=== PATIENT | male | born 1960 | race Caucasian/White ===

== ENCOUNTER 2024-06-07 16:35 | Emergency (ER) | payer OTHER, SELFPAY ==
[2024-06-07 16:41] VITALS: BP 155/94; PULSE 92; RESP 16; TEMP 35.6; O2SAT 97
--- NOTE | 2024-06-07 16:48 | ED_ITS ---
HPI - General Adult General Time Seen by Provider: 16:48 <Svetlana Ware MD - Last Filed: 06/08/24 09:02> Date Seen: 06/07/24 <Svtelana Ware MD - Last Filed: 06/08/24 09:02> Chief complaint: Head Injury/Pain <Svetlana Ware MD - Last Filed: 06/08/24 09:02> Stated complaint: head/hip injury <Svetlana Ware MD - Last Filed: 06/08/24 09:02> Time Seen by Provider: 06/07/24 16:38 <Svetlana Ware MD - Last Filed: 06/08/24 09:02> Source: patient and RN notes reviewed <Svetlana Ware MD - Last Filed: 0 06/08/24 09:02> Mode of arrival: ambulatory <Svetlana Ware MD - Last Filed: 06/08/24 09:02> Limitations: no limitations <Svetlana Ware MD - Last Filed: 06/08/24 09:02> History of Present Illness HPI narrative: This 64yo male is presenting to the ER with concern of left chest wall pain and left hip pain after a pallet of cereal fell on his head causing him to fall on left side. He really doesn't have any headache, left side of head felt sore from fall of box on his head but has no residual pain. No neck or back pain. No difficulty breathing but if he does cough or with movement, does have anterolateral chest wall pain. No LOC. Feels left groin and hip pain when trying to walk. No numbness or tingling. No blood thinners. This happened at work at [employer] around 3pm. Has not taken anything for pain and would appreciate either Tylenol or ibuprofen. Will order Tylenol for him. <Svetlana Crowder MD - Last Filed: 06/08/24 09:02> Related Data Home medications: Home Medications ?Medication ?Instructions ?Recorded ?Confirmed meloxicam .ROUTE 06/07/24 <Svetlana Ware MD - Last Filed: 06/08/24 09:02> Allergies/adverse reactions: Allergies Allergy/AdvReac Type Severity Reaction Status Date / Time No Known Drug Allergies Allergy Verified 06/07/24 16:44 <Svetlana Ware MD - Last Filed: 06/08/24 09:02> Review of Systems Status of ROS: Reports: 6 or more systems reviewed and unremarkable except as noted in History and below <Svetlana Ware MD - Last Filed: 06/08/24 09:02> PFSH [facility] Social History: Social History Smoking Status: Never smoker Do you use any of these nicotine containing products: None How often do you have a drink containing alcohol: never How often do you have six or more drinks on one occasion: Never AUDIT-C Alcohol total score: 0 Non-prescribed substance use: denies use <Svetlana Ware MD - Last Filed: 06/08/24 09:02> Exam Const: Vital Signs, click to edit/add: Vital Signs - 24 hr 06/07/24 16:41 06/07/24 19:00 06/07/24 20:45 Temperature 96.1 F L 98.5 F Pulse Rate [Pulse Oximeter] 92 85 Respiratory Rate 16 20 Blood Pressure [Ri ght Upper Arm] 155/94 H 150/88 H Pulse Oximetry 97 97 Oxygen Delivery Me thod Room Air This 64-year-old male is alert, interactive, no apparent distress. He ambulated into the ED of his own accord. Pupils equal round reactive, sclera clear, face atraumatic. There is no visual traumatic currency exchange specialist his scalp, left side of his head, no palpable painful area. No midline tenderness of his neck or rest of his spine. Lungs are clear, good air entry, no wheezing or crackles, no tachypnea, no accessory muscle use. CV regular rate and rhythm, no murmur, normal S1-S2, no S3-S4. Along his left anterolateral chest wall, states there is some soreness but there is no step-off, no crepitus. His abdomen is soft, nontender, nondistended, no organomegaly. He is sitting up on the edge of the bed, no leg length discrepancy, normal sensation distally. He is not feeling pain over the greater trochanter area, is feeling more pain in the groin, does have some pain with range of motion of his hip. He was still able to ambulate in. There is no noted traumatic currency exchange specialist his chest wall or over the outer hip area on the left side. <Svetlana Ware MD - Last Filed: 06/08/24 09:02> Vital Signs, click to edit/add: Vital Signs - 24 hr 06/07/24 16:41 06/07/24 19:00 06/07/24 20:45 Temperature 96.1 F L 98.5 F Pulse Rate [Pulse Oximeter] 92 85 Respiratory Rate 16 20 Blood Pressure [Ri ght Upper Arm] 155/94 H 150/88 H Pulse Oximetry 97 97 Oxygen Delivery Me thod Room Air <Herrera Greenberg MD - Last Filed: 06/07/24 20:22> Documenting provider has reviewed patient's vital signs: yes <Svetlana Ware MD - Last Filed: 06/08/24 09:02> Course Course ED Course: Will be obtaining head CT given the mechanism. Want to ensure no traumatic change. Will also look at chest x-ray with left rib views, left hip with pelvis to rule out fractures. Doubt that he has any pneumothorax or hemothorax given his stability and presentation at this time. Will order 1000 mg oral acetaminophen. <Svetlana Ware MD - Last Filed: 06/08/24 09:02> Reevaluation(s) Reevaluation #1: Patient signed out to Dr. Greenberg at shift change-[address] is already normal. We are awaiting the formal reads for his left rib and pelvis/left hip x-rays. I reviewed both sets of binge eating. He does have significant arthritis of his right hip but is not having pain there. His prosthetic left hip looks good. No evidence for any periprosthetic fracture or hip joint dislocation. I do not see any obvious pelvic fracture. Formal radiology results came back: XR Pelvis and L hip: Findings/Impression: Bones: Alignment is normal. No displaced fractures or bone lesions. Joint spaces: Left hip arthroplasty without hardware complication. Associated heterotopic bone formation of the proximal femur. End-stage right hip arthrosis. Soft tissues: Unremarkable. XR left ribs IMPRESSION: Probable acute nondisplaced left anterior 10th rib fracture. I rechecked the patient. He is endorsing some mild left chest pain, but does not have any point tenderness or bruising. Lung sounds are clear and equal. He is able to breathe deeply in easily. No diminished lung sounds to suggest a hemothorax, pneumothorax. Discussed the rib fracture with the patient. In terms of his rib fracture, The patient has good breath sounds in all rae and no hypoxia or tachycardia. There is no large hematoma or contusion or chest wall crepitus or flail segment.. No deformity. Chest x-ray shows isolated left anterior 10th up rib fracture, pneumothorax, hemothorax, or pulmonary contusion. With reasonable clinical certainty, I believe the patient is safe for discharge and can be safely managed as an outpatient. The patient was given return precautions and follow up instructions, they state understanding of these and ability to comply. Pain control as above. The patient is having more significant pain in his left hip and left groin. I had the patient do an ambulation trial. He is able to bear weight but needs to use a walker. He is able to step down his left leg but has a lot of left groin pain when he tries to lift his left leg up. He is not having any weakness or paralysis. Physical exam: Constitutional: Appears well-developed and well-nourished. Alert. Conversant. Non toxic. HENT: Head: Atraumatic. Nose: Nose normal. Mouth/Throat: Oral mucosa is clear and moist. no trismus. Eyes: Conjunctivae normal. EOM normal. Pupils equal, round, and reactive to light. No scleral icterus. Neck: Normal range of motion. Neck supple. No tracheal deviation present. No posterior midline cervical spine tenderness Cardiovascular: Normal rate, regular rhythm. No gallop. No friction rub. No murmur heard. Symmetric radial artery pulses Pulmonary/Chest: Effort normal. No stridor. No respiratory distress. No wheezes. No rales. No rhonchi . Mild left lateral rib cage tenderness but no crepitus. No point tenderness. No bruising. Abdominal: Soft. Bowel sounds normal. No distension. No mass. No tenderness. No rebound. No guarding. No CVA tenderness Musculoskeletal: No T or L-spine tenderness RUE: Normal range of motion. No tenderness. No deformity LUE: Normal range of motion. No tenderness. No deformity Pelvis is stable per RLE: Normal range of motion. No edema. No tenderness. No deformity LLE: Patient endorses pain in the left anterolateral hip and left groin. No bony crepitus. Range of motion is limited by pain. Femoral shaft, quad, hamstring are normal. Knee normal. Lower lowe leg, ankle, foot are normal. Neurological: Alert and oriented to person, place, and time. Normal strength. CN II-VII intact. No sensory deficit. GCS eye subscore is 4. GCS verbal subscore is 5. GCS motor subscore is 6. Normal coordination Skin: Skin is warm and dry. No rash noted. No pallor. Normal capillary refill. Psychiatric: Normal mood. Normal affect. Given difficulty with ambulation, although he is able to bear weight, will obtain pelvic CT IMPRESSION: 1. No evident acute displaced fracture. 2. Status post left hip arthroplasty without evidence of hardware complication. 3. There is heterotopic ossification adjacent to the left greater tuberosity of the femur. 4. Severe arthropathy of the right hip with flattening/collapse of the femoral head. Recheck: Pelvic CT is back and negative for acute fractures but does show pretty advanced arthritis in the patient's right (nonpainful tonight) hip. Discussed the findings with the patient. He verbalizes understanding. He says he is feeling better and wants to try to discharge home. 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 He says that if he calls, someone from [employer] will come pick him up from the ER in take him back to his truck. He plans to see sleep in the sleeper cab in of his truck tonight. He has food, heat, and everything he needs take care of himself there. I discussed them concern about his walking since he is still very samantha. I am concerned that he may have a lot of difficulty trying to climb up a ladder to get into the cab of his truck. We discussed possible hospitalization. He politely but definitively declines. Therefore will try a course of attempted outpatient management. We discussed managing his hip pain with [id number] medications including Tylenol or NSAIDs. He has a leave available in his truck. He will use that as needed. I am concerned that he probably will not have adequate pain relief from tlah-hap-oxoorvo pain medications. Will also give him a prescription for oxycodone (Instymeds, 10 tablets). Discussed opiate precautions including sedation, drowsiness, not driving for 6 hours after taking pain meds, as well as risk of constipation, addiction. For follow-up he says he plans to follow-up with his primary care provider [facility] [place] He actually has an appointment scheduled in 1 week with them. He does not want follow-up with the orthopedic team here in [place], since he does not live here in [place]. We discussed that if he runs into situation with uncontrolled pain or difficulty immobilization he should call 911 and return to the ER. Provided with digital copies of his x-rays and CT imaging for follow-up in [place]. <Herrera Greenberg MD - Last Filed: 06/07/24 20:22> Vital Signs Vital signs: Initial Vital Signs Temperature 96.1 F L 06/07/24 16:41 Temperature Source Temporal Artery Scan 06/07/24 16:41 Pulse Rate 92 06/07/24 16:41 Respiratory Rate 16 06/07/24 16:41 Blood Pressure 155/94 H 06/07/24 16:41 Blood Pressure Mean 114 H 06/07/24 16:41 Blood Pressure Position Sitting 06/07/24 16:41 Pulse Oximetry 97 06/07/24 16:41 Oxygen Delivery Method Room Air 06/07/24 16:41 Vital Signs Temperature 96.1 F L 06/07/24 16:41 Pulse Rate 92 06/07/24 16:41 Respiratory Rate 16 06/07/24 16:41 Blood Pressure 155/94 H 06/07/24 16:41 Pulse Oximetry 97 06/07/24 16:41 Oxygen Delivery Method Room Air 06/07/24 16:41 Temperature 98.5 F 06/07/24 20:45 Pulse Rate 85 06/07/24 20:45 Respiratory Rate 20 06/07/24 20:45 Blood Pressure 150/88 H 06/07/24 20:45 Pulse Oximetry 97 06/07/24 19:00 Oxygen Delivery Method Room Air 06/07/24 16:41 <Svetlana Ware MD - Last Filed: 06/08/24 09:02> Initial Vital Signs Temperature 96.1 F L 06/07/24 16:41 Temperature Source Temporal Artery Scan 06/07/24 16:41 Pulse Rate 92 06/07/24 16:41 Respiratory Rate 16 06/07/24 16:41 Blood Pressure 155/94 H 06/07/24 16:41 Blood Pressure Mean 114 H 06/07/24 16:41 Blood Pressure Position Sitting 06/07/24 16:41 Pulse Oximetry 97 06/07/24 16:41 Oxygen Delivery Method Room Air 06/07/24 16:41 Vital Signs Temperature 96.1 F L 06/07/24 16:41 Pulse Rate 92 06/07/24 16:41 Respiratory Rate 16 06/07/24 16:41 Blood Pressure 155/94 H 06/07/24 16:41 Pulse Oximetry 97 06/07/24 16:41 Oxygen Delivery Method Room Air 06/07/24 16:41 Temperature 98.5 F 06/07/24 20:45 Pulse Rate 85 06/07/24 20:45 Respiratory Rate 20 06/07/24 20:45 Blood Pressure 150/88 H 06/07/24 20:45 Pulse Oximetry 97 06/07/24 19:00 Oxygen Delivery Method Room Air 06/07/24 16:41 <Herrera Greenberg MD - Last Filed: 06/07/24 20:22> Medications Administered Medications: Discontinued Medications Generic Name Dose Route Start Last Admin Trade Name Freq PRN Reason Stop Dose Admin Hydrocodone Bitart/Acetaminophen 2 tab 06/07/24 18:59 06/07/24 19:14 Hydrocodone-Acetamin 5-325 Mg 1 Tab PO 06/07/24 19:00 2 tab ONCE ONE Administration <Svetlana Ware MD - Last Filed: 06/08/24 09:02> Discontinued Medications Generic Name Dose Route Start Last Admin Trade Name Freq PRN Reason Stop Dose Admin Hydrocodone Bitart/Acetaminophen 2 tab 06/07/24 18:59 06/07/24 19:14 Hydrocodone-Acetamin 5-325 Mg 1 Tab PO 06/07/24 19:00 2 tab ONCE ONE Administration <Herrera Greenberg MD - Last Filed: 06/07/24 20:22> Medical Decision Making Imaging Data CT scan - head: Attestation: I have reviewed the pertinent imaging results. <Svetlana Crowder MD - Last Filed: 06/08/24 09:02> Radiologist's impression: Patient: CASEY LEE Facility:?[facility] Patient ID:?[id number] Site Patient ID:?[id number]. Site :?[id number] Study:?CT-Head WO-06/07/2024 5:13:57 PM Ordering Physician:Jake Mota Final Report: INDICATION: Injury. TECHNIQUE: Noncontrast CT images of the brain. COMPARISON: None. FINDINGS: Mild diffuse cerebral volume loss. No mass effect or midline shift. Hodgson-white differentiation is maintained. No acute intracranial hemorrhage or pathologic extra-axial fluid collection. Intracranial atherosclerotic calcifications. Calvarium is intact. The globes are symmetric. Mild right maxillary sinus mucosal thickening. Mastoid air cells are clear. IMPRESSION: No acute intracranial hemorrhage or mass effect. Please note that all CT scans at this facility use dose modulation, iterative reconstruction, and/or weight-based dosing when appropriate to reduce radiation dose to as low as reasonably achievable. Dictated by Dong Lilly MD @ 06/07/2024 5:36:23 PM (Electronic Signature) <Svetlana Ware MD - Last Filed: 06/08/24 09:02> Discharge Plan Discharge Clinical Impression: Fall, Acute pain of left hip, Rib fracture <Svetlana Ware MD - Last Filed: 06/08/24 09:02> Patient Disposition: Home, Self-Care <Svetlana Ware MD - Last Filed: 06/08/24 09:02> Condition: Stable <Svetlana Ware MD - Last Filed: 06/08/24 09:02> Instructions: Chest Wall Pain (ED), Hip Pain (ED) <Svetlana Ware MD - Last Filed: 06/08/24 09:02> Additional Instructions: As we discussed, I am concerned about your amount of hip pain. I more that you will have a lot of trouble getting into her truck. You want to try to manage this at home, therefore, we will try a course of attempted outpatient management. If you have worsening pain, if you are unable to get into her truck, or if you have any problems, please return to the ER or call 911 right away. We do not see any signs of any broken bones in your left hip or pelvis. To manage this pain try the following steps: use ice for 15 minutes every 3-4 hours to painful areas, can help decrease pain and swelling. Use Tylenol 1000 mg 3 times a day baseline for pain. If you have pain uncontrollable Tylenol, use Aleve per bottle directions if needed for extra pain management. Use the prescription pain killer- oxycodone (Instymeds, 10 tablets). Oxycodone has side effects including sedation, drowsiness. do not drive for 6 hours after taking oxycodone. Oxycodone can cause constipation and can be addictive. Please follow-up with his primary care provider and his doctors at the [facility] in [place] in 1 week. Bring the disc with digital copies of your x-rays and scans to your appointment. If you have uncontrolled pain or difficulty immobilization, trouble breathing, worsening chest pain, or any concerns, call 911 and return to the ER immediate. <Svetlana Ware MD - Last Filed: 06/08/24 09:02> Prescriptions: No Action meloxicam .ROUTE <Svetlana Ware MD - Last Filed: 06/08/24 09:02> Follow Up/Referrals: Provider,Not a Local [Primary Care Provider] - <Svetlana Ware MD - Last Filed: 06/08/24 09:02> Stand Alone Forms: MyHealth Info Instructions <Svetlana Ware MD - Last Filed: 06/08/24 09:02>
--- NOTE | 2024-06-07 16:52 | CRLHL7_ITS ---
For Patients: As a result of the Century Cures Act, medical imaging exams and procedure reports are released immediately into your electronic medical record. You may view this report before your referring provider. If you have questions, please contact your health care provider. INDICATION: Injury. TECHNIQUE: Noncontrast CT images of the brain. COMPARISON: None. FINDINGS: Mild diffuse cerebral volume loss. No mass effect or midline shift. Hodgson-white differentiation is maintained. No acute intracranial hemorrhage or pathologic extra-axial fluid collection. Intracranial atherosclerotic calcifications. Calvarium is intact. The globes are symmetric. Mild right maxillary sinus mucosal thickening. Mastoid air cells are clear. IMPRESSION: No acute intracranial hemorrhage or mass effect. Please note that all CT scans at this facility use dose modulation, iterative reconstruction, and/or weight-based dosing when appropriate to reduce radiation dose to as low as reasonably achievable. Dictated by Dong Lilly MD @ 06/07/2024 5:36:23 PM (Electronically Signed)
--- NOTE | 2024-06-07 16:52 | CRLHL7_ITS ---
For Patients: As a result of the Cures Act, medical imaging exams and procedure reports are released immediately into your electronic medical record. You may view this report before your referring provider. If you have questions, please contact your health care provider. INDICATION: Chest pain. TECHNIQUE: Chest/left ribs, 5 views. COMPARISON: None. FINDINGS: Cardiovascular and mediastinum: Heart size and vasculature are normal in caliber and appearance. Lungs and pleural spaces: Low lung volumes with bibasilar atelectasis. No sign of infiltrate or mass. No sign of pleural effusion. No pneumothorax. Bones and soft tissues: Probable acute nondisplaced left anterior 10th rib fracture. No significant findings. IMPRESSION: Probable acute nondisplaced left anterior 10th rib fracture. Dictated by Rodrigue Lomas MD @ 06/07/2024 6:16:51 PM (Electronically Signed)
--- NOTE | 2024-06-07 16:52 | CRLHL7_ITS ---
For Patients: As a result of the Cures Act, medical imaging exams and procedure reports are released immediately into your electronic medical record. You may view this report before your referring provider. If you have questions, please contact your health care provider. Indication: Trauma. Technique: Pelvis/left hip, 3 views. Comparison: None. Findings/Impression: Bones: Alignment is normal. No displaced fractures or bone lesions. Joint spaces: Left hip arthroplasty without hardware complication. Associated heterotopic bone formation of the proximal femur. End-stage right hip arthrosis. Soft tissues: Unremarkable. Dictated by Rodrigue Lomas MD @ 06/07/2024 6:18:44 PM (Electronically Signed)
--- OUTSIDE RECORDS SUMMARY | 2024-06-07 17:51 | XMS_ITS | Patient Health Record ---
Author Organization [facility] [place] Address [address] [place], [place] [id number] Reason For Referral No Information Encounters Encounter Location Date Provider Diagnosis [facility] [address] [place] [place] [id number] 09/06/2023 Plan Of Treatment No Information
--- NOTE | 2024-06-07 18:59 | CRLHL7_ITS ---
For Patients: As a result of the Century Cures Act, medical imaging exams and procedure reports are released immediately into your electronic medical record. You may view this report before your referring provider. If you have questions, please contact your health care provider. INDICATION: Fall with left-sided hip pain and left pelvic pain. COMPARISON: Same day radiographs of the pelvis and left hip TECHNIQUE: CT of the pelvis without intravenous contrast. FINDINGS: Diffuse osseous demineralization. No evident acute displaced fracture. Partially imaged degenerative change of the lumbosacral spine. Mild degenerative change of the sacroiliac joints. Severe arthropathy of the right hip characterized by large osteophytes, large areas of subchondral cystic change, osseous remodeling, and flattening/collapse of the femoral head. Status post left hip arthroplasty. No substantial periprosthetic lucency associated with the arthroplasty in the field of view. There is heterotopic ossification again noted adjacent to the left greater tuberosity of the femur. Enlarged prostate measuring 52 millimeters in the axial plane. Small fat containing umbilical hernia. Minimal vascular calcifications. There is a small amount of calcification in the right rectus femoris muscle possibly representing heterotopic ossification, but only partially visualized. IMPRESSION: 1. No evident acute displaced fracture. 2. Status post left hip arthroplasty without evidence of hardware complication. 3. There is heterotopic ossification adjacent to the left greater tuberosity of the femur. 4. Severe arthropathy of the right hip with flattening/collapse of the femoral head. Please note that all CT scans at this facility use dose modulation, iterative reconstruction, and/or weight-based dosing when appropriate to reduce radiation dose to as low as reasonably achievable. Dictated by Trenton Maldonado MD @ 06/07/2024 7:50:33 PM (Electronically Signed)
[2024-06-07 19:00] VITALS: O2SAT 97
[2024-06-07] MEDS: HYDROCODONE-ACETAMIN 5-325 MG 1 TAB 2 TAB PO (19:14)
[2024-06-07 20:45] VITALS: BP 150/88; PULSE 85; RESP 20; TEMP 36.9
== END 2024-06-07 20:45 | disposition home or self-care (01) ==
PROVIDERS: Emergency Provider Emergency Medicine
DX: S22.32XA Fracture of one rib, left side, initial encounter for closed fracture (principal); W20.8XXA Other cause of strike by thrown, projected or falling object, initial encounter; Y99.0 Civilian activity done for income or pay; M25.552 Pain in left hip
CPT/HCPCS: 70450; 71101; 72192; 73502; 94761; 99284; A9270